=== PATIENT | female | born 1980 | race Caucasian/White ===

== ENCOUNTER 2017-05-06 17:25 | Emergency (ER) | payer OTHER ==
[2017-05-06 17:31] VITALS: BP 140/98; BMI 39.4
--- NOTE | 2017-05-06 18:08 | DR.GENAD ---
HPI - PCP Primary Care Physician: LINA BERRY - Complaint/Symptoms Chief Complaint:: PATIENT HAS BOXER FRACTURE THAT HAS BEEN FRACTURED SINCE FRIDAY NIGHT. SHE WENT TO [facility] AND LEFT BEFORE THEY COULD PUT IN SPLINT. - Source History Provided: Patient - Mode of Arrival Mode of Arrival: Ambulatory - Timing Onset of Chief Complaint: 05/03/17 PMH - PMH Past Medical History: Yes Past Medical History: Migraines, Hypertension Past Surgical History: Yes Surgical History: , Other - Family History History of Family Medical Conditions: Yes Family Medical History: Heart Failure - Social History Does patient currently use any type of tobacco product: Yes Have you used tobacco products in the last 12 months: Yes Type of Tobacco Use: Cigarettes Does any household member use tobacco: No Alcohol Use: Occasionally Do you use any recreational Drugs:: No Lives With: Family Lives Where: Home - infectious screening In the last 2 months have you had wt loss of >10#?: NO Have you had fever, night sweats or hemotysis?: No Have you traveled outside the country in the last 6 months?: No Isolation: Standard ROS - Review of Systems Eyes: No Symptoms Reported ENTM: No Symptoms Reported Respiratoy: No Symptoms Reported Cardiovascular: No Symptoms Reported Gastrointestinal/Abdominal: No Symptoms Reported Genitourinary: No Symptoms Reported Neurological: No Symptoms Reported Musculoskeletal: Hand (right sweollen) Integumentary: No Symptoms Reported Hematologic/Lymphatic: No Symptoms Reported Endocrine: No Symptoms Reported Psychiatric: No Symptoms Reported All Other Systems: Reviewed and Negative PE - Vital Signs Vitals: Temperature 97.3 F Pulse Rate 100 Respiratory Rate 20 Blood Pressure [Right Arm] 145/88 Blood Pressure 140/98 O2 Sat by Pulse Oximetry 99 - General General Appearance: Alert, In No Apparent Distress - Head Head Exam: Normal Inspection, Atraumatic - Eyes Eye exam: Normal Appearance, PERRL, EOMI - ENT ENT Exam: Normal Exam External Ear Exam: Normal External Inspection TM/Canal Exam: Bilateral Normal Nose Exam: Normal Nose Exam Mouth Exam: Normal Inspection Throat Exam: Normal Inspection - Neck Neck Exam: Normal Inspection, Full ROM - Chest Chest Inspection: Normal Inspection - Respiratory Respiratory Exam: Normal Lung Sounds Bilat Respiratory Exam: Bilateral Clear to Auscultation - Cardiovascular Cardiovascular Exam: Regular Rate, Normal Rhythm - Abdominal Exam Abdominal Exam: Normal Inspection, Normal Bowel Sounds Abdominal Tenderness: negative: RUQ, RLQ, LUQ, LLQ, Epigastrium, Suprapubic, Diffuse, Mild, Moderate, Severe, Other - Extremities Extremities Exam: Tenderness (right hand dorsum), Edema (right hand) - Back Back Exam: Normal Inspection - Neurologic Neurological Exam: Alert, Oriented X3, CN II-XII Intact - Psychiatric Psychiatric Exam: Normal Affect, Normal Mood - Skin Skin Exam: Warm, Dry, Intact Course - Treatment Treatment: Reduction attempt x 2; second reduction shows good approximation visually,x ray show no change with overlying splint which obsccures fine osseous detail. ROR - XRAY XRAY Interpreted by: Radiologist (Findings: overlying splint obscures fine osseous detail. Given these limitations, there is no appreciable change in appearance or alignment of the volarly angulated fracture of the 5th metacarpal. No new osseous abnormality identified.) - Diagnosis Discharge Problem: Closed boxer's fracture Qualifiers: Encounter type: initial encounter Qualified Code(s): S62.339A - Displaced fracture of neck of unspecified metacarpal bone, initial encounter for closed fracture - Discharge Plan Condition: Stable - Follow ups/Referrals Follow ups/Referrals: EMBER BERRY [Primary Care Provider] - 3 days - Instructions
--- NOTE | 2017-05-06 18:34 | RAD ---
Right hand, three views Indication: Trauma with hand pain Comparison: 05/03/2017 Findings: There is no appreciable change in appearance or alignment of the volarly angulated distal l ittle finger metacarpal shaft fracture. There is soft tissue swelling of the dorsal hand, increased s emil prior. Otherwise, no new osseous abnormality identified. Impression: Stable boxer's fracture of the little finger metacarpal without new osseous abnormality identified. Reported By:
[2017-05-06] MEDS ORDERED: XYLOCAINE 1 % (PLAIN) ONE (18:49)
--- NOTE | 2017-05-06 19:43 | RAD ---
HISTORY: Post reduction Study: Three views right hand Comparison: Earlier same day FINDINGS/IMPRESSION: Again noted is a fracture of the 5th metacarpal. There is persistent volar angulation without signifi cant change from the previous exam. Reported By:
--- NOTE | 2017-05-06 20:37 | RAD ---
Right hand, three views Indication: Post reduction Comparison: Hand radiograph from earlier today Findings/Impression: Overlying splint obscures fine osseous detail. Given these limitations, there is no appreciable change in appearance or alignment of the volarly angulated fracture of the 5th metaca rpal. No new osseous abnormality identified. Reported By:
== END 2017-05-06 21:30 | disposition home or self-care (01) ==
LOC: ER 17:36
DX: S62.339A Displaced fracture of neck of unspecified metacarpal bone, initial encounter for closed fracture (principal); Y33.XXXA Other specified events, undetermined intent, initial encounter
CPT/HCPCS: 29125; 73130; 96372; 99282; 99283; J2001